=== PATIENT | male | born 1970 | race Caucasian/White ===

== ENCOUNTER → 2016-07-10 | Outpatient (CLI) | payer OTHER ==
--- NOTE | 2016-07-10 12:46 | DI ---
EXAM: LUMBAR SPINE 2-3 VIEWS COMPARISON: None available. HISTORY:Stiffness in lower back for years. ITS.REASON: DX TESTING . FINDINGS: Three views of lumbar spine were obtained. There is disc space narrowing and endplate sclerosis and spurring at L4-5 and L5-S1 and T12-L1. The lumbar vertebral bodies are well aligned. The vertebral body heights are well-maintained. The sacral arches are intact. The pedicles and spinous processes are intact and are well aligned. IMPRESSION: 1. Disc space narrowing sclerosis and spurring at L4-5 and L5-S1 and T12-L1. [place] [facility] [place]
== END ==
LOC: IMA 11:45
DX: Z02.89 Encounter for other administrative examinations (principal)